=== PATIENT | male | born 1975 | race African-American/Black ===

== ENCOUNTER 2019-08-19 01:11 | Emergency (ER) | payer OTHER ==
[~2019-08-19] VITALS: Ht 175.3 cm; Wt 106.6 kg
[2019-08-19] MEDS ORDERED: MICROZIDE12.5 MG PO (01:20)
[2019-08-19] MEDS ORDERED: PROCARDIA XL60 MG PO (01:20)
[2019-08-19] MEDS ORDERED: CARVEDILOL (01:21)
[2019-08-19 01:48] LABS: ABSOLUTE EOSINOPHILS 0.3 thou/uL (0.0-0.7); ABSOLUTE LYMPHOCYTES 1.4 thou/uL (0.8-5.3); ABSOLUTE MONOCYTES 0.4 thou/uL (0.0-1.2); ABSOLUTE NEUTROPHILS 3.8 thou/uL (1.6-8.1); BASOPHILS 0.6 %; EOSINOPHILS 4.4 %; HEMATOCRIT 41.6 % (42.0-52.0); HEMOGLOBIN 14.3 gm/dL (14.0-18.0); LYMPHOCYTES 23.2 %; MCH 28.8 pg (26.0-34.0); MCHC 34.4 g/dL (28.0-37.0); MCV 83.8 fL (80.0-100.0); MONOCYTES 7.2 %; MPV 7.4 fl. (7.2-11.1); NUCLEATED RBCS 0 /100WBC; PLATELET COUNT* 190 thou/uL (150-400); POLYS 64.6 %; RBC 4.96 mil/uL (4.50-6.00); RDW-CV 14.6 % (10.5-14.5); WBC 5.9 thou/uL (4.0-11.0)
[2019-08-19 01:58] LABS: CALCIUM 9.4 mg/dL (8.5-10.1); CREATININE 2.3 mg/dL (0.6-1.3)
[2019-08-19 02:00] LABS: POTASSIUM 2.9 mmol/L (3.5-5.1)
[2019-08-19 02:02] LABS: ALBUMIN 3.9 g/dL (3.4-5.0); TOTAL BILIRUBIN 0.5 mg/dL (<0.1-1.0)
[2019-08-19] MEDS ORDERED: CLONIDINE HCL0.2 M2 PO (04:04)
[2019-08-19] MEDS ORDERED: CARVEDILOL12.5 MG PO (04:04)
[2019-08-19] MEDS ORDERED: NIFEDIPINE10 MG PO (04:04)
[2019-08-19 04:31] VITALS: BP 143/78
--- NOTE | 2019-08-19 10:38 | EKG ---
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
== END 2019-08-19 04:31 | disposition home or self-care (01) ==
LOC: M.ERS 01:11
PROVIDERS: Emergency Medicine
DX: I16.0 Hypertensive urgency (principal); I10 Essential (primary) hypertension; Z88.8 Allergy status to other drugs, medicaments and biological substances

== ENCOUNTER 2019-08-31 18:55 | Inpatient (IN) | payer OTHER ==
[~2019-08-31] VITALS: Ht 175.3 cm; Wt 114.3 kg
[~2019-08-31 18:55] MED LIST: CARVEDILOL; CARVEDILOL12.5 MG PO; CLONIDINE HCL0.2 M2 PO; MICROZIDE12.5 MG PO; NIFEDIPINE10 MG PO; PROCARDIA XL60 MG PO
[2019-08-31 18:59] VITALS: BP 215/118
[2019-08-31 19:29] LABS: ABSOLUTE EOSINOPHILS 0.2 thou/uL (0.0-0.7); ABSOLUTE LYMPHOCYTES 1.7 thou/uL (0.8-5.3); ABSOLUTE MONOCYTES 0.4 thou/uL (0.0-1.2); ABSOLUTE NEUTROPHILS 2.7 thou/uL (1.6-8.1); BASOPHILS 0.5 %; EOSINOPHILS 4.3 %; HEMOGLOBIN 14.1 gm/dL (14.0-18.0); MCH 28.4 pg (26.0-34.0); MCHC 34.3 g/dL (28.0-37.0); MCV 82.9 fL (80.0-100.0); MONOCYTES 8.4 %; MPV 6.9 fl. (7.2-11.1); NUCLEATED RBCS 0 /100WBC; PLATELET COUNT* 187 thou/uL (150-400); POLYS 52.8 %; RBC 4.95 mil/uL (4.50-6.00); RDW-CV 14.2 % (10.5-14.5); WBC 5.1 thou/uL (4.0-11.0)
[2019-08-31 19:37] LABS: CALCIUM 9.8 mg/dL (8.5-10.1); CREATININE 2.1 mg/dL (0.6-1.3)
[2019-08-31 19:38] LABS: POTASSIUM 2.7 mmol/L (3.5-5.1)
[2019-08-31 19:42] LABS: TOTAL BILIRUBIN 0.6 mg/dL (<0.1-1.0)
[2019-08-31 21:06] LABS: URINE BILIRUBIN NEGATIVE (Negative); URINE BLOOD TRACE (Negative); URINE CLARITY CLEAR; URINE COLOR YELLOW; URINE GLUCOSE-RANDOM NEGATIVE (Negative); URINE KETONES NEGATIVE (Negative); URINE LEUKOCYTES-REFLEX NEGATIVE (Negative); URINE NITRITE-REFLEX NEGATIVE (Negative); URINE PROTEIN 2+ (Negative); URINE SPECIFIC GRAVITY 1.025 (1.005-1.030); URINE UROBILINOGEN 0.2 E.U./dl (0.2-1.0)
[2019-08-31 21:12] LABS: AMP/METHAMP Negative (Negative); BARBITURATES Negative (Negative); BENZODIAZEPINES Negative (Negative); COCAINE Negative (Negative); METHADONE Negative (Negative); OPIATES Negative (Negative); PCP Negative (Negative); THC Negative (Negative)
[2019-08-31 21:50] LABS: CRYSTALS None Seen /LPF (None Seen); HYALINE CASTS 4-10 Moderate /LPF (None Seen); MUCUS None Seen strn/LPF (None Seen); SQUAMOUS 0-3 Few /LPF (0-3)
[2019-08-31 21:51] LABS: BACTERIA-REFLEX None Seen /HPF (None Seen); URINE RBC 0-2 Rare /HPF (0-2); URINE WBC-REFLEX 0-5 Rare /HPF (0-5)
[2019-08-31 21:52] VITALS: BP 173/102
[2019-08-31 22:20] VITALS: BP 174/110
[2019-09-01 04:00] VITALS: BP 158/100
[2019-09-01 07:00] VITALS: BP 172/103
[2019-09-01 08:33] LABS: HEMATOCRIT 40.2 % (42.0-52.0); HEMOGLOBIN 13.5 gm/dL (14.0-18.0); MCH 28.1 pg (26.0-34.0); MCHC 33.5 g/dL (28.0-37.0); MCV 83.7 fL (80.0-100.0); MPV 7.5 fl. (7.2-11.1); RBC 4.8 mil/uL (4.50-6.00); RDW-CV 14.4 % (10.5-14.5); WBC 4.4 thou/uL (4.0-11.0)
[2019-09-01 08:50] LABS: CALCIUM 9.3 mg/dL (8.5-10.1); POTASSIUM 3.4 mmol/L (3.5-5.1)
--- NOTE | 2019-09-01 09:32 | EKG ---
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[place] : 1975 Requested By: Ira Moreau Order Number: [id number] MD: Donovan Blevins Measurements Intervals [place] Rate: 77 P: 1 [place]: 171 QRS: -71 QRSD: 116 T: 100 QT: 394 QTc: 446 Interpretive Statements Sinus rhythm Left anterior fascicular block Probable left ventricular hypertrophy Compared to ECG 08/19/2019 02:14:30 No significant changes Electronically Signed On 09-01-2019 9:32:39 GATE OPERATOR by Donovan Blevins [email or web address] <ELECTRONICALLY SIGNED> By: Donovan Blevins MD, [facility] 09/01/19 0932 26 26 Donovan Blevins MD, FACC /EPI
--- NOTE | 2019-09-01 09:36 | EKG ---
[place] [address] ELECTROCARDIOGRAM REPORT Name: DONOVAN BRAVO Room: [address] ADM IN [facility]#: [id number] Admission: 08/31/19 Attend Phys: Jordan Roberson MD Discharge: Date of : 75 Report #: [id number] THIS REPORT FOR: //name// [facility] Test Date: 2019-09-01 Test Time: 08:40:04 Pat Name: DONOVAN BRAVO Department: Room: [address] Gender: M Kier Drier: : 1975 Requested By: Donovan Blevins Order Number: [id number] Abelardo MD: Donovan Blevins Measurements Intervals [place] Rate: 62 P: 4 SD: 172 QRS: -77 QRSD: 114 T: 168 QT: 454 QTc: 461 Interpretive Statements Sinus rhythm Abnormal R-wave progression, late transition Probable LVH with secondary repol abnrm Inferior infarct, old Compared to ECG 08/19/2019 02:14:30 Myocardial infarct finding now present Left anterior fascicular block no longer present Electronically Signed On 09-01-2019 9:35:42 BEAD TRIMMER by Donovan Blevins [email or web address] <ELECTRONICALLY SIGNED> By: Donovan Blevins MD, FACC 09/01/19 0935 Donovan Blevins MD, FAC /EPI
[2019-09-01 10:51] LABS: CHOLESTEROL 197 mg/dL (<200); HDL CHOLESTEROL 39 mg/dL (>40); LDL CHOLESTEROL 118 mg/dL (<100); TC:HDL 5.1 Ratio (Not establshd); TRIGLYCERIDE 202 mg/dL (<150); VLDL 40 mg/dL (<40)
[2019-09-01 10:52] LABS: SERUM ASSESSMENT Clear
[2019-09-01 10:57] VITALS: BP 170/112
[2019-09-01 13:50] VITALS: BP 169/93
[2019-09-01] MEDS ORDERED: HYDRALAZINE 2525 MG PO (14:58)
[2019-09-01] MEDS ORDERED: COREG6.25 MG PO (15:00)
[2019-09-01] MEDS ORDERED: PROCARDIA XL30 MG PO (15:00)
[2019-09-01 15:58] VITALS: BP 169/93
[2019-09-01 16:21] VITALS: BP 179/144
--- NOTE | 2019-09-01 16:45 | 2DMMODE ---
[place] [address] 2 D/M-MODE ECHOCARDIOGRAM Name: DONOVAN BRAVO Room: [address] IN [facility]#: [id number] Admission: 08/31/19 Attend Phys: Jordan Roberson, Discharge: Date of : 75 Date of Service: 09/01/19 1644 Report #: [id number] THIS REPORT FOR: //name// APPROVED REPORT Study performed: 09/01/2019 14:32:35 EXAM: Comprehensive 2D, Doppler, and color-flow Echocardiogram Patient Location: In-Patient Room #: 207 Status: routine BSA: 2.19 HR: 62 bpm BP: 172/103 mmHg Rhythm: NSR Other Information Study Quality: Good 2D Dimensions IVSd: 21.83 (7-11mm) LVOT Diam: 23.05 (18-24mm) LVDd: 47.93 mm PWd: 18.98 (7-11mm) Ascending Ao: 30.81 (22-36mm) LVDs: 29.74 (25-40mm) Aortic Root: 33.00 mm Volumes Left Atrial Volume (Systole) LA ESV Index: 50.50 mL/m2 Aortic Valve AoV Peak Stephen.: 1.39 m/s AO Peak Gr.: 7.77 mmHg LVOT Max P.84 mmHg AO Mean Gr.: 4.47 mmHg LVOT Mean P.33 mmHg LVOT Max V: 1.10 m/s AO V2 VTI: 26.19 cm LVOT Mean V: 0.70 m/s YARELY (VTI): 3.43 cm2 LVOT V1 VTI: 21.55 cm Mitral Valve E/A Ratio: 0.93 MV Decel. Time: 198.91 ms MV E Max Stephen.: 0.58 m/s MV PHT: 57.68 ms MVA (PHT): 3.81 cm2 [place] [address] 2 D/M-MODE ECHOCARDIOGRAM Name: DONOVAN BRAVO Room: [address] IN [facility].#: [id number] Admission: 08/31/19 Attend Phys: Jordan Roberson, Discharge: Date of : 75 Date of Service: 09/01/19 1644 Report #: [id number] TDI E/Lateral E': 8.29 E/Medial E': 8.29 Medial E' Stephen.: 0.07 m/s Lateral E' Stephen.: 0.07 m/s Pulmonary Valve PV Peak Stephen.: 0.97 m/s PV Peak Gr.: 3.80 mmHg Left Ventricle The left ventricle is normal size. There is normal LV segmental wall motion. Severe concentric left ventricular hypertrophy. Left ventricular systolic function is normal. LVEF is 55-60%. Transmitral Doppler flow pattern suggests impaired LV relaxation. Right Ventricle The right ventricle is normal size. The right ventricular systolic function is normal. Atria Left atrium is moderately dilated. The right atrium size is normal. Aortic Valve The aortic valve is normal in structure. No aortic regurgitation is present. There is no aortic valvular stenosis. Mitral Valve The mitral valve is normal in structure. Mild mitral regurgitation. No evidence of mitral valve stenosis. Tricuspid Valve The tricuspid valve is normal in structure. Trace tricuspid regurgitation. Unable to assess PA pressure. Pulmonic Valve The pulmonary valve is normal in structure. There is no pulmonic valvular regurgitation. Great Vessels The aortic root is normal in size. IVC is normal in size and collapses >50% with inspiration. Pericardium There is no pericardial effusion. <Conclusion> [place] [address] 2 D/M-MODE ECHOCARDIOGRAM Name: DONOVAN BRAVO Room: [address] IN [facility]#: [id number] Admission: 08/31/19 Attend Phys: Jordan Roberson, Discharge: Date of : 75 Date of Service: 09/01/19 1644 Report #: [id number] The left ventricle is normal size. Severe concentric left ventricular hypertrophy. Left ventricular systolic function is normal. LVEF is 55-60%. Transmitral Doppler flow pattern suggests impaired LV relaxation. Left atrium is moderately dilated. Trace tricuspid regurgitation. IVC is normal in size and collapses >50% with inspiration. <ELECTRONICALLY SIGNED> By: Donovan Blevins MD, FACC 09/01/191643 43 43 Donovan Blevins MD, FACC /INF
== END 2019-09-01 17:09 | disposition home or self-care (01) | DRG 305 ==
LOC: M.ERS 18:55 → M.2W 20:17 → M.TBA-ER 20:17 → M.2W 21:49
PROVIDERS: Internal Medicine; Physician Assistant; Registered Nurse; ADMIT Internal Medicine
DX: I16.1 Hypertensive emergency (principal); N17.9 Acute kidney failure, unspecified; F17.210 Nicotine dependence, cigarettes, uncomplicated; I16.0 Hypertensive urgency; E87.6 Hypokalemia; I12.9 Hypertensive chronic kidney disease with stage 1 through stage 4 chronic kidney disease, or unspecified chronic kidney disease; N18.9 Chronic kidney disease, unspecified; Z88.8 Allergy status to other drugs, medicaments and biological substances; Z71.6 Tobacco abuse counseling; Z91.19 Patient's noncompliance with other medical treatment and regimen; Z82.49 Family history of ischemic heart disease and other diseases of the circulatory system; Z84.89 Family history of other specified conditions

== ENCOUNTER 2019-11-04 18:57 | Emergency (ER) | payer OTHER ==
[~2019-11-04] VITALS: Ht 175.3 cm; Wt 108.9 kg
[~2019-11-04 18:57] MED LIST changes: +COREG6.25 MG PO; +HYDRALAZINE 2525 MG PO; +PROCARDIA XL30 MG PO
[2019-11-04] MEDS ORDERED: HYDRALAZINE 2525 MG PO (20:12)
[2019-11-04] MEDS ORDERED: CARVEDILOL12.5 MG PO (20:12)
[2019-11-04] MEDS ORDERED: NIFEDIPINE ER30 M1 PO (20:12)
[2019-11-04] MEDS ORDERED: COREG6.25 MG PO (20:12)
[2019-11-04 21:17] VITALS: BP 165/89
== END 2019-11-04 21:17 | disposition home or self-care (01) ==
LOC: M.ERS 18:57
DX: I10 Essential (primary) hypertension (principal); R51 Headache; F17.200 Nicotine dependence, unspecified, uncomplicated; Z88.8 Allergy status to other drugs, medicaments and biological substances